=== PATIENT | male | born 1980 | race Hispanic/Latino ===

== ENCOUNTER 2023-01-23 13:25 | Emergency (ER) | payer OTHER ==
[~2023-01-23] VITALS: Ht 170.2 cm; Wt 98.4 kg
[2023-01-23] MEDS ORDERED: ACETAMINOPHEN 325 MG TAB PO ONE (14:00)
[2023-01-23 15:30] VITALS: BP 126/72; PULSE 84; RESP 16; O2SAT 98
== END 2023-01-23 15:42 | disposition home or self-care (01) ==
LOC: EDH 13:25
DX: S16.1XXA Strain of muscle, fascia and tendon at neck level, initial encounter (principal); V89.2XXA Person injured in unspecified motor-vehicle accident, traffic, initial encounter; Y93.89 Activity, other specified; Y92.89 Other specified places as the place of occurrence of the external cause; Y99.8 Other external cause status
CPT/HCPCS: 70450; 72125

== ENCOUNTER 2024-11-26 10:37 | Emergency (ER) | payer SELFPAY ==
[~2024-11-26] VITALS: Ht 172.7 cm; Wt 92.1 kg
[2024-11-26 10:43] VITALS: BP 154/107; PULSE 89; RESP 20; TEMP 98.4; O2SAT 97
[2024-11-26] MEDS ORDERED: NEOM28.44 TP (10:47)
[2024-11-26] MEDS ORDERED: IBUP-2077 PO (10:47)
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
[2024-11-26] MEDS: ibuPROFEN 800 MG TAB PO ONE (10:51)
[2024-11-26] MEDS ORDERED: CLIN-141 PO (10:53)
== END 2024-11-26 11:07 | disposition home or self-care (01) ==
LOC: EDH 10:37
DX: T20.011A Burn of unspecified degree of right ear [any part, except ear drum], initial encounter (principal); T20.05XA Burn of unspecified degree of scalp [any part], initial encounter; T20.07XA Burn of unspecified degree of neck, initial encounter; Z77.098 Contact with and (suspected) exposure to other hazardous, chiefly nonmedicinal, chemicals; Y92.89 Other specified places as the place of occurrence of the external cause; X08.8XXA Exposure to other specified smoke, fire and flames, initial encounter; Y93.89 Activity, other specified; Y99.8 Other external cause status
CPT/HCPCS: 99283